=== PATIENT | female | born 1995 | race Two or more races ===

== ENCOUNTER 2017-05-19 00:50 | Emergency (ER) | payer SELFPAY ==
[~2017-05-19] VITALS: Ht 162.6 cm; Wt 52.2 kg
[2017-05-19 01:08] VITALS: BP 124/79
[2017-05-19] MEDS ORDERED: ACETAMINOPHEN ES 500 MG TABLET ONE (01:58)
[2017-05-19] MEDS ORDERED: ACETAMINOPHEN 325 MG TABLET PO ONE (02:00)
== END 2017-05-19 02:02 | disposition home or self-care (01) ==
LOC: ER 00:52
DX: S46.912A Strain of unspecified muscle, fascia and tendon at shoulder and upper arm level, left arm, initial encounter (principal); S46.911A Strain of unspecified muscle, fascia and tendon at shoulder and upper arm level, right arm, initial encounter; S29.012A Strain of muscle and tendon of back wall of thorax, initial encounter; V49.59XA Passenger injured in collision with other motor vehicles in traffic accident, initial encounter; Y93.89 Activity, other specified; Y92.410 Unspecified street and highway as the place of occurrence of the external cause; Y99.9 Unspecified external cause status
CPT/HCPCS: 99282; A4606; Z7610